=== PATIENT | female | born 1990 | race Caucasian/White ===

== ENCOUNTER 2017-08-01 20:30 | Observation (INO) | payer OTHER ==
[~2017-08-01] VITALS: Ht 165.1 cm; Wt 108.9 kg
[2017-08-01] MEDS ORDERED: PREN-546 PO (21:14)
[2017-08-01] MEDS ORDERED: cefTRIAXone 1,000 MG in LIDOCAINE 1% ***ER ONLY *** 2.1 ML IM SCH (21:40)
[2017-08-01] MEDS ORDERED: LIDOCAINE 1% 500 MG/50 ML VIAL INJ SCH (21:40)
[2017-08-01 21:42] VITALS: BP 113/65
[2017-08-01] MEDS ORDERED: cefTRIAXone 1,000 MG VIAL ONE (22:38)
[2017-08-01] MEDS ORDERED: LIDOCAINE 1% 50 ML ONE (22:38)
[2017-08-01] MEDS ORDERED: NITR100C7 PO (23:16)
== END 2017-08-01 23:22 | disposition home or self-care (01) ==
LOC: MLD 20:30
PROVIDERS: ADMIT Obstetrics & Gynecology; ATTEND Obstetrics & Gynecology
DX: O26.892 Other specified pregnancy related conditions, second trimester (principal); M54.5 Low back pain; Z3A.23 23 weeks gestation of pregnancy
CPT/HCPCS: 76805; 81000; 96372; G0378; J0696; J2001; Q0092; J7060

== ENCOUNTER 2017-10-25 13:15 | Observation (INO) | payer OTHER ==
[~2017-10-25] VITALS: Ht 175.3 cm; Wt 115.2 kg
[~2017-10-25 13:15] MED LIST: NITR100C7 PO; PREN-546 PO
[2017-10-25 13:53] VITALS: BP 122/62
== END 2017-10-25 17:33 | disposition home or self-care (01) ==
LOC: MLD 13:15
PROVIDERS: ADMIT Obstetrics & Gynecology; ATTEND Obstetrics & Gynecology
DX: O26.893 Other specified pregnancy related conditions, third trimester (principal); R10.9 Unspecified abdominal pain; Z3A.35 35 weeks gestation of pregnancy
CPT/HCPCS: 76805; G0378; Q0092

== ENCOUNTER 2017-10-27 16:35 | Observation (INO) | payer OTHER ==
[~2017-10-27 16:35] MED LIST changes: -NITR100C7 PO
[2017-10-27 17:00] VITALS: BP 126/73
== END 2017-10-27 17:30 | disposition home or self-care (01) ==
LOC: MLD 16:35
PROVIDERS: ADMIT Obstetrics & Gynecology; ATTEND Obstetrics & Gynecology
DX: O36.8130 Decreased fetal movements, third trimester, not applicable or unspecified (principal); Z3A.36 36 weeks gestation of pregnancy
CPT/HCPCS: 81000; G0378

== ENCOUNTER 2017-11-21 23:30 | Observation (INO) | payer OTHER ==
[~2017-11-21] VITALS: Ht 172.7 cm; Wt 115.7 kg
[2017-11-21 23:48] VITALS: BP 128/72
== END 2017-11-22 01:52 | disposition home or self-care (01) ==
LOC: MFCC 23:30
PROVIDERS: ADMIT Obstetrics & Gynecology; ATTEND Obstetrics & Gynecology
DX: O26.893 Other specified pregnancy related conditions, third trimester (principal); R10.9 Unspecified abdominal pain; O99.89 Other specified diseases and conditions complicating pregnancy, childbirth and the puerperium; M54.9 Dorsalgia, unspecified; Z3A.00 Weeks of gestation of pregnancy not specified
CPT/HCPCS: 76815; G0378; Q0092

== ENCOUNTER 2017-11-22 11:45 | Inpatient (IN) | payer OTHER ==
[~2017-11-22] VITALS: Ht 172.7 cm; Wt 120.7 kg
[2017-11-22] MEDS ORDERED: LACTATED RINGERS 1,000 ML IV SCH (13:18)
[2017-11-22] MEDS ORDERED: OXYTOCIN 20 UNITS in LACTATED RINGERS 1,000 ML IV SCH (13:18)
[2017-11-22] MEDS ORDERED: PROMETHAZINE 25 MG/ML VIAL IVP PRN (13:20)
[2017-11-22] MEDS ORDERED: NALBUPHINE 10 MG/ML AMP IVP PRN (13:20)
[2017-11-22] MEDS ORDERED: OXYTOCIN 10 UNITS/ML VIAL IM PRN ×2 (13:20→19:50)
[2017-11-22] MEDS ORDERED: METHYLERGONOVINE 0.2 MG/ML AMP IM PRN ×2 (13:20→19:50)
[2017-11-22 15:08] LABS: APPEARANCE,URINE CLOUDY (CLEAR); BILIRUBIN,URINE NEGATIVE (NEGATIVE); BLOOD, URINE TRACE-I (NEGATIVE); COLOR,URINE YELLOW (YELLOW); LEUKOCYTE ESTERASE ,URINE 1+ (NEGATIVE); NITRITE, URINE NEGATIVE (NEGATIVE); PH,URINE 6.5 (5.0-9.0); UGLUCOSE NEGATIVE (NEGATIVE)
[2017-11-22 15:15] LABS: BASOPHILS # (AUTO) 0.1 K/uL (0.00-0.22); BASOPHILS % (AUTO) 0.8 % (0.0-2.0); EOSINOPHILS # (AUTO) 0.2 K/uL (0-0.4); EOSINOPHILS % (AUTO) 1.3 % (0.0-4.0); HEMATOCRIT 33.3 % (36-48); HEMOGLOBIN 11.1 g/dL (12.0-16.0); LYMPHOCYTES # (AUTO) 1.6 K/uL (2.5-16.5); LYMPHOCYTES % (AUTO) 13.5 % (20.5-51.1); MEAN CORPUSCULAR HEMOGLOBIN 28 pg (27-31); MEAN CORPUSCULAR HGB CONC 33 g/dL (33-37); MEAN CORPUSCULAR VOLUME 83.3 fL (80-94); MONOCYTES # (AUTO) 0.7 K/uL (0.8-1.0); MONOCYTES % (AUTO) 5.5 % (1.7-9.3); NEUTROPHILS # (AUTO) 9.2 K/uL (1.8-7.7); NEUTROPHILS % (AUTO) 78.9 % (42.2-75.2); PLATELET COUNT (AUTO) 253 K/uL (140-450); RED BLOOD CELL COUNT(AUTO) 3.99 MIL/uL (4.20-5.40); RED CELL DISTRIBUTION WIDTH 15.8 % (11.6-13.7); WHITE BLOOD COUNT (AUTO) 11.8 K/uL (4.8-10.8)
[2017-11-22 15:40] LABS: RBC,URINE 0-5 (RARE) /HPF (0-5)
[2017-11-22] MEDS ORDERED: NALBUPHINE HYDROCHLORIDE 10 MG/ML VIAL ONE (16:07)
[2017-11-22] MEDS ORDERED: PROMETHAZINE 25 MG/ML VIAL ONE (16:07)
[2017-11-22] MEDS ORDERED: LIDOCAINE 2% 1000 MG/50 ML VIAL INJ ONE (18:32)
[2017-11-22] MEDS ORDERED: OXYTOCIN 10 UNITS/ML VIAL ONE (18:32)
[2017-11-22] MEDS ORDERED: METHYLERGONOVINE 0.2 MG TAB PO PRN (19:50)
[2017-11-22] MEDS ORDERED: TEMAZEPAM 15 MG CAP PO PRN (19:50)
[2017-11-22] MEDS ORDERED: oxyCODONE/APAP 5/325 MG 1 TAB TAB PO PRN (19:50)
[2017-11-22] MEDS ORDERED: BENZOCAINE/MENTHOL 20%-0.5% 60 GM CAN TP PRN (19:50)
[2017-11-22] MEDS ORDERED: HYDROcodone/APAP 5/325 MG 1 TAB TAB PO PRN (19:50)
[2017-11-22] MEDS ORDERED: MEASLES, MUMPS, AND RUBELLA 1 VIAL SQVAC PRN (19:50)
[2017-11-22] MEDS ORDERED: SODIUM PHOSPHATE 118 ML ENEM RC PRN (19:50)
[2017-11-22] MEDS ORDERED: DOCUSATE SOD/SENNA 50/8.6 MG 1 TAB PO SCH (21:00)
[2017-11-23 09:19] LABS: HEMATOCRIT 31.9 % (36-48); HEMOGLOBIN 10.5 g/dL (12.0-16.0)
--- NOTE | 2017-11-23 09:34 | NUR ---
PATIENT HAS BEEN SCREENED AND CATEGORIZED LOW NUTRITION RISK. PATIENT WILL BE SEEN WITHIN 7 DAYS OF ADMISSION. 11/29/[address]
[2017-11-23] MEDS ORDERED: DOCUSATE SOD/SENNA 50/8.6 MG 1 TAB PO SCH (21:00)
[2017-11-24] MEDS ORDERED: IBUP-2213 PO (10:08)
== END 2017-11-24 13:20 | disposition home or self-care (01) | DRG 560 ==
LOC: MFCC 11:45 → OBSVTOIN 13:23 → MFCC 23:05
PROVIDERS: ADMIT Obstetrics & Gynecology; ATTEND Obstetrics & Gynecology
PROC: 0HQ9XZZ Repair Perineum Skin, External Approach (ICD-10-PCS; principal; 2017-11-22)
PROC: 10E0XZZ Delivery of Products of Conception, External Approach (ICD-10-PCS; 2017-11-22)
PROC: 10907ZC Drainage of Amniotic Fluid, Therapeutic from Products of Conception, Via Natural or Artificial Opening (ICD-10-PCS; 2017-11-22)
PROC: 3E033VJ Introduction of Other Hormone into Peripheral Vein, Percutaneous Approach (ICD-10-PCS; 2017-11-22)
DX: O69.81X0 Labor and delivery complicated by cord around neck, without compression, not applicable or unspecified (principal); O70.0 First degree perineal laceration during delivery; Z3A.40 40 weeks gestation of pregnancy; Z37.0 Single live birth; O89.4 Spinal and epidural anesthesia-induced headache during the puerperium; Z28.21 Immunization not carried out because of patient refusal
CPT/HCPCS: G0378 ×2; 36415; 59409; 81001; 85018; 85025; 86592; 86886; 86900; 86901; 87086; J2001; J2300; J2550; J2590; J7120